=== PATIENT | female | born 1990 | race American Indian/Alaskan Native ===

== ENCOUNTER 2021-12-22 12:21 | Emergency (ER) | payer BC ==
[2021-12-22] MEDS ORDERED: IBUPROFEN 800 MG TAB PO ONE (12:30)
--- NOTE | 2021-12-22 12:38 | Emergency Department Report ---
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 Blood sugar was 48 on EMS arrival. Mother called EMS after she saw a "convulsion". Last meal was 8 PM last night, 16 hours prior to arrival. Otherwise patient has been in her normal state of health. She is now euglycemic after receiving oral glucose per EMS. Patient requests ibuprofen for mild headache. LMP December 07, 2020. History of juvenile diabetes since age 10. Mayela informed me that she has convulsions with low blood sugar. -: Sudden, This morning Consistency: now resolved Improves with: other (Oral glucose provided by EMS.) Associated Symptoms: headaches Treatments Prior to Arrival: other (Oral glucose provided by EMS) - Related Data Allergies Allergy/AdvReac Type Severity Reaction Status Date / Time latex Allergy Intermediate Hives Verified 12/22/21 14:08 shellfish derived Allergy Intermediate Hives Verified 12/22/21 14:08 ED Review of Systems ROS: Stated complaint: LOW BLOOD GLUCOSE Other details as noted in HPI Comment: All other systems reviewed and negative Constitutional: denies: chills, fever, malaise Respiratory: denies: cough, shortness of breath Gastrointestinal: denies: abdominal pain, nausea, vomiting Neurological: headache ED Past Medical Hx - Past Medical History Previous Medical History?: Yes Hx Diabetes: Yes (Insulin-dependent diabetes since age 10) - Surgical History Past Surgical History?: Yes Additional Surgical History: Breast reduction - Family History Family history: diabetes, hypertension - Social History Smoking Status: Never Smoker Substance Use Type: None ED Physical Exam - General Limitations: No Limitations General appearance: alert, in no apparent distress, other (Well-appearing, pleasant, no acute distress) - Head Head exam: Present: atraumatic, normocephalic - Eye Eye exam: Present: normal appearance - ENT ENT exam: Present: mucous membranes moist - Neck Neck exam: Present: normal inspection, full ROM - Respiratory Respiratory exam: Present: normal lung sounds bilaterally. Absent: respiratory distress, wheezes, rales, rhonchi, stridor - Cardiovascular Cardiovascular Exam: Present: regular rate, normal rhythm, normal heart sounds. Absent: systolic murmur, diastolic murmur, rubs, gallop - GI/Abdominal GI/Abdominal exam: Present: soft, normal bowel sounds. Absent: distended, tenderness, guarding, rebound - Extremities Exam Extremities exam: Present: normal inspection - Neurological Exam Neurological exam: Present: alert, oriented X3 - Psychiatric Psychiatric exam: Present: normal affect, normal mood - Skin Skin exam: Present: warm, dry, intact, normal color. Absent: rash ED Course Vital Signs 12/22/21 12/22/21 12:28 13:53 Temperature 98 F Pulse Rate 98 H 86 Respiratory 16 16 Rate Blood Pressure 136/86 128/81 [Right] O2 Sat by Pulse 98 100 Oximetry ED Medical Decision Making - Medical Decision Making Hypoglycemia due to lack of food. Patient has not eaten in 16 hours. She tolerated male here in emergency department. Tension headache addressed with ibuprofen no danger signs such as sudden onset, severe pain, fever or neurological deficit. Patient is discharged home. Critical care attestation.: If time is entered above; I have spent that time in minutes in the direct care of this critically ill patient, excluding procedure time. ED Disposition Clinical Impression: Hypoglycemia due to insulin, Tension headache Disposition: HOME / SELF CARE / HOMELESS Is pt being admited?: No Does the pt Need Aspirin: No Condition: Stable Instructions: Tension Headache, Adult, [id number] Referrals: PRIMARY CARE, [Primary Care Provider] - 3-5 Days
[2021-12-22 13:54] VITALS: BP 128/81
== END 2021-12-22 14:16 | disposition home or self-care (01) ==
LOC: ED 12:21
DX: E16.0 Drug-induced hypoglycemia without coma (principal); G44.209 Tension-type headache, unspecified, not intractable; E11.9 Type 2 diabetes mellitus without complications; I10 Essential (primary) hypertension; Z98.890 Other specified postprocedural states; Z91.040 Latex allergy status; Z91.013 Allergy to seafood
CPT/HCPCS: 82962; 99283